=== PATIENT | male | born 1995 | race Hispanic/Latino ===

== ENCOUNTER 2018-05-07 21:56 | Emergency (ER) | payer OTHER ==
[~2018-05-07] VITALS: Ht 175.3 cm; Wt 176.0 kg
[2018-05-07] MEDS ORDERED: ONDANSETRON HCL INJ 2 MG/ML VIAL IV STA (22:36)
[2018-05-07] MEDS ORDERED: SODIUM CHLORIDE 0.9% 1000ML 1,000 ML IV ONE (22:45)
[2018-05-07] MEDS ORDERED: ACETAMINOPHEN 325 MG TAB PO ONE (23:00)
[2018-05-07] MEDS ORDERED: GLYBURIDE5 MG PO (23:46)
[2018-05-07] MEDS ORDERED: GABAPENTIN300 MG PO (23:47)
[2018-05-07] MEDS ORDERED: METFORMIN HCL500 MG PO (23:47)
[2018-05-07] MEDS ORDERED: GEMFIBROZIL600 MG (23:48)
== END 2018-05-08 00:09 | disposition home or self-care (01) ==
LOC: FSED 21:56
DX: R50.9 Fever, unspecified (principal); E11.65 Type 2 diabetes mellitus with hyperglycemia; Z79.84 Long term (current) use of oral hypoglycemic drugs; E87.6 Hypokalemia
CPT/HCPCS: 71046; 80053; 81003; 85025; 99284; J2405; J7030